=== PATIENT | female | born 1990 | race Caucasian/White ===

== ENCOUNTER 2017-12-12 06:15 | Day surgery (SDC) | payer MEDICAID ==
[~2017-12-12] VITALS: Ht 162.6 cm; Wt 62.6 kg
[~2017-12-12 06:15] MED LIST: LACTATED RINGERS 1,000 ML IV SCH
[2017-12-12 07:18] LABS: CLARITY URINE CLOUDY (CLEAR); COLOR URINE YELLOW (YELLOW); KETONES URINE NEGATIVE (NEGATIVE); LEUKOCYTE ESTERASE URINE TRACE (NEGATIVE); NITRITE URINE NEGATIVE (NEGATIVE); OCCULT BLOOD URINE 3+ (NEGATIVE); PH URINE 5.5 (4.5-8.0); PROTEIN URINE NEGATIVE (NEGATIVE); UROBILINOGEN URINE 0.2 E.U./dL (0.2-1.0)
[2017-12-12 07:29] LABS: UCG SCREEN NEGATIVE
[2017-12-12] MEDS ORDERED: BUPIVACAINE HCL/PF 0.5% (5MG/ML) 10ML ONE (08:14)
[2017-12-12] MEDS ORDERED: BACITRACIN ZINC 15GM TUBE TOP ONE (08:15)
[2017-12-12] MEDS ORDERED: PROPOFOL 200MG/20ML VIAL IV ONE ×2 (08:22→08:23)
[2017-12-12] MEDS ORDERED: SKIN ADHESIVE 0.7 GM EA TOP ONE ×2 (08:34→08:35)
[2017-12-12] MEDS ORDERED: LIDOCAINE HCL/PF 1% 10 MG/ML 5ML VIAL ONE ×2 (09:00→09:46)
[2017-12-12] MEDS ORDERED: MEPERIDINE HCL/PF 25MG/ML CPJ IM NR (09:42)
[2017-12-12] MEDS ORDERED: ONDANSETRON HCL 4MG/2ML VIAL IM NR (09:45)
[2017-12-12] MEDS ORDERED: CEFAZOLIN SODIUM 1000MG/VIAL ONE (09:46)
== END 2017-12-12 11:05 | disposition home or self-care (01) ==
LOC: OR 06:15
PROVIDERS: ATTEND Surgery
DX: D36.13 Benign neoplasm of peripheral nerves and autonomic nervous system of lower limb, including hip (principal)
CPT/HCPCS: 64788; 81003; 81025; 87077; 87086; 88305; G0168; J0690; J2405; J3490; J7120; J2704